=== PATIENT | female | born 1960 | race Caucasian/White ===

== ENCOUNTER 2016-11-06 04:17 | Observation (INO) | payer OTHER ==
[~2016-11-06] VITALS: Ht 162.6 cm; Wt 86.7 kg
[~2016-11-06 04:17] MED LIST: LASIX80 MG PO; MORPHINE SULFAT15 M1 PO; MS CONTIN,ORAMO15 M1 PO; NOHOMEMEDS; SUMATRIPTAN SUC25 MG PO; TIZANIDINE HCL4 M1 PO; TRAZODONE HCL50 MG PO; VERAPAMIL HCL180 MG PO; VERAPAMIL PO; VIVELLE-DOT0.05 MG; ZANAFLEX2 MG PO
[2016-11-06 04:48] LABS: BASOPHIL COUNT 0.1 K/uL (0-0.1); EOSINOPHIL (%) 5.7 % (0-5); EOSINOPHIL COUNT 0.8 K/uL (0-0.3); HEMATOCRIT 42.4 % (36.0-46.0); IMMATURE GRANULOCYTE (%) 0.4 % (0.0-0.7); IMMATURE GRANULOCYTE COUNT 0.1 K/uL; INSTRUMENT ABS NEUTROPHIL CT 6.9 K/uL; LYMPHOCYTE COUNT 4.1 K/uL (1.0-2.8); MCH 30.7 PG (29.0-34.0); MCHC 33.3 G/DL (30.0-36.0); MCV 92.4 FL (83-99); MEAN PLAT.VOLUME 10.3 uM^3 (9.5-12.4); MONOCYTE (%) 8.9 % (3-12); MONOCYTE COUNT 1.2 K/uL (0-0.8); NEUTROPHIL COUNT 6.9 K/uL (1.8-6.4); PLATELET COUNT 278 K/uL (156-360); RBC DIS.WIDTH-CV 12.4 % (11.8-14.6); RBC DIS.WIDTH-SD 42.1 % (39-53); RED BLOOD COUNT 4.59 M/uL (3.80-5.20); WHITE BLOOD COUNT 13.1 K/uL (4.1-10.2)
[2016-11-06 04:59] LABS: CHLORIDE 106 mEq/L (99-109); POTASSIUM 3.9 mEq/L (3.7-5.4); SODIUM 140 mEq/L (136-147)
[2016-11-06 05:01] LABS: GLUCOSE 102 mg/dL (70-99)
[2016-11-06 05:02] LABS: ANION GAP 14 MEQ/L (2-14)
[2016-11-06 05:05] LABS: GFR ESTIMATE (CALCULATED) > 59 mL/min/
[2016-11-06 05:06] LABS: UREA NITROGEN (BUN) 24 mg/dL (9-23)
[2016-11-06 05:10] LABS: TROP-I INTERPRETATION NEGATIVE; TROPONIN-I < 0.01 ng/mL (0.0-0.30)
[2016-11-06 08:32] VITALS: BP 122/56
[2016-11-06 08:53] LABS: D-DIMER ELISA 0.18 mg/L FEU (< 0.57)
[2016-11-06] MEDS ORDERED: TIZANIDINE HCL4 MG PO ×2 (08:59→09:01)
[2016-11-06] MEDS ORDERED: ARYMO ER15 MG PO (09:03)
[2016-11-06] MEDS ORDERED: HYDROCODON-ACE1 EAC9 PO (09:05)
[2016-11-06] MEDS ORDERED: ATORVASTATIN CA40 MG PO (09:07)
[2016-11-06] MEDS ORDERED: HYDRALAZINE HCL25 MG PO (09:09)
[2016-11-06] MEDS ORDERED: NICOTINE PATCH1 EAC2 TD (09:19)
[2016-11-06 10:41] LABS: TROP-I INTERPRETATION NEGATIVE; TROPONIN-I < 0.01 ng/mL (0.0-0.30)
[2016-11-06 12:30] VITALS: BP 110/56
[2016-11-06] MEDS ORDERED: ADVIL200 MG PO (14:41)
[2016-11-06] MEDS ORDERED: IMITREX25 MG PO (14:41)
[2016-11-06] MEDS ORDERED: LIDOCAINE700 MG TD (14:42)
[2016-11-06 15:26] VITALS: BP 99/54
[2016-11-06 16:13] LABS: TROP-I INTERPRETATION NEGATIVE; TROPONIN-I < 0.01 ng/mL (0.0-0.30)
== END 2016-11-06 18:39 | disposition home or self-care (01) ==
LOC: EME 04:17 → EDOF 07:32 → 5WEST 08:34
PROVIDERS: Emergency Medicine; Nurse Practitioner Adult Health
DX: R07.89 Other chest pain (principal); R94.31 Abnormal electrocardiogram [ECG] [EKG]; I10 Essential (primary) hypertension; R78.5 Finding of other psychotropic drug in blood; F17.210 Nicotine dependence, cigarettes, uncomplicated; G43.909 Migraine, unspecified, not intractable, without status migrainosus; E66.9 Obesity, unspecified; Z68.33 Body mass index [BMI] 33.0-33.9, adult
CPT/HCPCS: 71020; 80048; 84484; 85025; 85379; 93005; 99281; 99285; G0378; J2405; J7042